=== PATIENT | male | born 1965 | race Caucasian/White ===

== ENCOUNTER 2016-12-03 21:19 | Emergency (ER) | payer OTHER ==
[~2016-12-03] VITALS: Ht 170.2 cm; Wt 62.0 kg
[~2016-12-03 21:19] MED LIST: BACT800T5 PO; CHEMO; CYAN100017 PO; LACT PO; LORTA5 PO; SYNT88TA PO; TRAM50TA PO
[2016-12-03 21:22] VITALS: BP 132/85; PULSE 101; RESP 16; TEMP 98.8; O2SAT 99
[2016-12-03] MEDS ORDERED: OXYC1TAB63 PO (21:50)
[2016-12-03] MEDS ORDERED: LEVO.125 PO (21:50)
--- NOTE | 2016-12-03 21:51 | PD ---
HPI . Constipation Chief Complaint: GI Complaint Time Seen by Provider: 21:40 Travel History International Travel<30 days: No Contact w/Intl Traveler<30days: No Traveled to known affect area: No History of Present Illness HPI Patient presents with a chief complaint of abdominal pain and constipation. He underwent a GoLYTELY prep for colonoscopy about a week ago. He has not been able to have a bowel movement since. He has been treating himself with Metamucil and a stool softener without success. No known exacerbating factor. His abdominal pain is constant and crampy and is rated 6/10. PFSH Past Medical History Cancer: Yes (VOCAL CORDS) Cardiovascular Problems: Yes Chemotherapy: Yes COPD: Yes Diabetes: No Diminished Hearing: No Endocrine: Yes Genitourinary: No Hepatitis: No Hiatal Hernia: No Immune Disorder: No Musculoskeletal: Yes Neurologic: No Psychiatric: No Reproductive: No Respiratory: Yes Immunizations Current: Yes Radiation Therapy: Yes Sickle Cell Disease: No Thyroid Disease: Yes (HYPOTHYROIDISM) Tetanus Vaccination: > 5 Years Influenza Vaccination: No Past Surgical History AICD: No Endocrine Surgery: Yes (thyroidectomy) Joint Replacement: No Pacemaker: No Other Surgery: Yes (TRACH AND PEG TUBE) Social History Alcohol Use: Yes (occ) Tobacco Use: No Substance Use: No Allergies-Medications (Allergen,Severity, Reaction): Coded Allergies: *MDRO Multi-Drug Resistant Organism (Verified Adverse Reaction, Unknown, ) MRSA (sputum) - 02/28/16 Reported Meds & Prescriptions Reported Meds & Active Scripts Active Lactinex (Lactobacillus Acidophilus) 1 Tab Tab 1 Tab PO BID 31 Days Bactrim DS (Sulfamethoxazole-Trimethoprim DS) 1 Tab Tab 1 Tab PO BID 7 Days [place] 5-325 mg (Hydrocodone-Acetaminophen 5-325 mg) 1 Tab 1 Tab PO Q4H PRN B-12 (Cyanocobalamin) 1 000 Cap 1,000 Mcg PO DAILY 1000 mcg (1 mg) every day for one week, followed by 1 mg every week for four weeks and then, if the underlying disorder persists (eg, PA, surgical removal of the terminal ileum), 1 mg every month for the remainder of the patient's life. Reported Oxycodone-Acetaminophen 5-325 mg Tab 1 Tab PO Q6H PRN Synthroid (Levothyroxine Sodium) 125 Mcg Tab 125 Mcg PO DAILY Tramadol Hcl (Tramadol HCl) 50 Mg Tab 50 Mg PO Q4H PRN [Chemo ] Synthroid 88 mcg (Levothyroxine Sodium) 88 Mcg Tab 88 Mcg PO DAILY Review of Systems Except as stated in HPI: all other systems reviewed are Neg General / Constitutional: No: Fever, Chills Gastrointestinal: Positive: Abdominal Pain, Constipation Physical Exam Narrative GENERAL: Awake and alert and in no acute distress. He speaks with a voice box. SKIN: Warm and dry. HEAD: Atraumatic. Normocephalic. EYES: Pupils equal and round. NECK: Trachea midline. Tracheostomy. CARDIOVASCULAR: Regular rate and rhythm. RESPIRATORY: No accessory muscle use. GI: His abdomen is soft. Rectal exam shows soft stool. MUSCULOSKELETAL: No obvious deformities. No edema. NEUROLOGICAL: Awake and alert. No obvious cranial nerve deficits. Motor grossly within normal limits. Normal speech. PSYCHIATRIC: Appropriate mood and affect; insight and judgment normal. Data Data Last Documented VS Vital Signs Date Time Temp Pulse Resp B/P Pulse Ox O2 Delivery O2 Flow Rate FiO2 12/03/16 21:22 98.8 101 16 132/85 99 Orders Fleets Enema (Adult) (Fleets Enema (Adul (12/03/16 22:00) MDM Medical Decision Making Medical Screen Exam Complete: Yes Emergency Medical Condition: Yes Differential Diagnosis Differential diagnosis of abdominal pain includes but is not limited to gastritis, pancreatitis, hepatitis, gastroenteritis, gallbladder disease, constipation, urinary retention, UTI, peptic ulcer disease, diverticulitis or appendicitis. Narrative Course This patient presents with abdominal pain and constipation. He is not impacted on exam. He will be treated with a fleets enema. The patient had good results with a fleets enema. He states that his pain is improved but not yet completely resolved. The enema will be followed up with a bottle of magnesium citrate. He will then be discharged home. Diagnosis Primary Impression: Constipation Qualified Code: K59.00 - Constipation, unspecified constipation type Patient Instructions: Constipation (DC), General Instructions Disposition: 01 DISCHARGE HOME Condition: Stable Melinda Wiley MD Dec 03, 2016 21:51
[2016-12-03] MEDS ORDERED: SOD PHOSPHATE/SOD BIPHOSPHATE (ADULT) ENEMA 133ML RECTAL ONE (22:00)
[2016-12-03] MEDS ORDERED: MAGNESIUM CITRATE SOLN 300 ML BTL G-TUBE ONE (23:15)
[2016-12-03] MEDS ORDERED: MAGNESIUM CITRATE SOLN 300 ML BTL PO ONE (23:15)
== END 2016-12-03 23:42 | disposition home or self-care (01) ==
LOC: NEPD 21:19
DX: K59.00 Constipation, unspecified (principal); J44.9 Chronic obstructive pulmonary disease, unspecified; E03.9 Hypothyroidism, unspecified; Z93.0 Tracheostomy status; Z85.21 Personal history of malignant neoplasm of larynx
CPT/HCPCS: 99284

== ENCOUNTER 2017-02-23 05:38 | Emergency (ER) | payer OTHER ==
[~2017-02-23] VITALS: Ht 175.3 cm; Wt 66.0 kg
[~2017-02-23 05:38] MED LIST changes: +LEVO.125 PO; +OXYC1TAB63 PO
[2017-02-23 05:42] VITALS: BP 128/91; PULSE 138; RESP 18; TEMP 99; O2SAT 99
--- NOTE | 2017-02-23 06:21 | PD ---
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 Patient is otherwise been feeling well and voices no other concerns or complaints. PFSH Past Medical History Narrative Medical Laryngeal cancer tracheostomy PEG tube COPD; nursing notes reviewed Cancer: Yes (VOCAL CORDS) Cardiovascular Problems: Yes Chemotherapy: Yes COPD: Yes Diabetes: No Diminished Hearing: No Endocrine: Yes Genitourinary: No Hepatitis: No Hiatal Hernia: No Immune Disorder: No Musculoskeletal: Yes Neurologic: No Psychiatric: No Reproductive: No Respiratory: Yes Immunizations Current: Yes Radiation Therapy: Yes Sickle Cell Disease: No Thyroid Disease: Yes (HYPOTHYROIDISM) Past Surgical History AICD: No Endocrine Surgery: Yes (thyroidectomy) Joint Replacement: No Pacemaker: No Other Surgery: Yes (TRACH AND PEG TUBE) Social History Alcohol Use: Yes (occ) Tobacco Use: No Substance Use: No Allergies-Medications (Allergen,Severity, Reaction): Coded Allergies: *MDRO Multi-Drug Resistant Organism (Verified Adverse Reaction, Unknown, ) MRSA (sputum) - 02/28/16 Reported Meds & Prescriptions Reported Meds & Active Scripts Active Lactinex (Lactobacillus Acidophilus) 1 Tab Tab 1 Tab PO BID 31 Days Bactrim DS (Sulfamethoxazole-Trimethoprim DS) 1 Tab Tab 1 Tab PO BID 7 Days [place] 5-325 mg (Hydrocodone-Acetaminophen 5-325 mg) 1 Tab 1 Tab PO Q4H PRN B-12 (Cyanocobalamin) 1 000 Cap 1,000 Mcg PO DAILY 1000 mcg (1 mg) every day for one week, followed by 1 mg every week for four weeks and then, if the underlying disorder persists (eg, PA, surgical removal of the terminal ileum), 1 mg every month for the remainder of the patient's life. Reported Oxycodone-Acetaminophen 5-325 mg Tab 1 Tab PO Q6H PRN Synthroid (Levothyroxine Sodium) 125 Mcg Tab 125 Mcg PO DAILY Tramadol Hcl (Tramadol HCl) 50 Mg Tab 50 Mg PO Q4H PRN [Chemo ] Synthroid 88 mcg (Levothyroxine Sodium) 88 Mcg Tab 88 Mcg PO DAILY Review of Systems Except as stated in HPI: all other systems reviewed are Neg General / Constitutional: No: Fever Cardiovascular: No: Chest Pain or Discomfort Respiratory: No: Shortness of Breath Gastrointestinal: No: Abdominal Pain Musculoskeletal: No: Pain Neurologic: No: Weakness Hematologic/Lymphatic: No: Easy Bruising Physical Exam Narrative GENERAL: Well-developed thin male in no acute distress no respiratory distress SKIN: Warm and dry. HEAD: Normocephalic. EYES: No scleral icterus. No injection or drainage. NECK: Supple, trachea midline. No JVD or lymphadenopathy. CARDIOVASCULAR: Regular rate and rhythm without murmurs, gallops, or rubs. RESPIRATORY: Breath sounds equal bilaterally. No accessory muscle use. GASTROINTESTINAL: Abdomen soft, non-tender, stoma exposed without PEG tube in place, nondistended. Data Data Last Documented VS Vital Signs Date Time Temp Pulse Resp B/P (MAP) Pulse Ox O2 Delivery O2 Flow Rate FiO2 02/23/17 05:42 99.0 138 18 128/91 (103) 99 Room Air Orders Orders Abdomen, Kub Only (02/23/17 ) [facility] Medical Decision Making Medical Screen Exam Complete: Yes Emergency Medical Condition: Yes Medical Record Reviewed: Yes Interpretation(s) KUB: FINDINGS: Frontal view of the upper abdomen lower chest was performed after instillation of Gastrografin through the PEG tube. Contrast is seen in the stomach and in loops of small bowel. No dilated loops of small bowel. Visualized lower lungs are clear. CONCLUSION: Intraluminal water-soluble contrast in stomach and small bowel. Virgil Newberry MD on February 23, 2017 at 6:46 Board Certified Radiologist. This report was verified electronically. Differential Diagnosis Device malfunction, PEG tube dislodgment Narrative Course After identifying patient with 18 [place] PEG tube area with cleansed with Betadine and gently inserted into the stoma of his prior PEG tube placement. Patient tolerated procedure well. KUB with as her graft been ordered to confirm placement Diagnosis Primary Impression: PEG (percutaneous endoscopic gastrostomy) adjustment/replacement/removal Referrals: Primary Care Physician call for appointment Patient Instructions: General Instructions Additional Instructions: Return to the emergency department for any concerns or change in condition Disposition: 01 DISCHARGE HOME Condition: Stable Leeann Dumont MD Feb 23, 2017 06:21
--- NOTE | 2017-02-23 06:52 | RADRPT ---
EXAM DATE/TIME: 02/23/2017 06:28 [facility] COMPARISON: No previous studies available for comparison. INDICATIONS : Perforation MEDICAL HISTORY : Chronic obstructive pulmonary disease. laryngeal cancer SURGICAL HISTORY : Rib removal. ENCOUNTER: Initial ACUITY: 1 day PAIN SCORE: 0/10 LOCATION: abdomen FINDINGS: Frontal view of the upper abdomen lower chest was performed after instillation of Gastrografin throug h the PEG tube. Contrast is seen in the stomach and in loops of small bowel. No dilated loops of sm all bowel. Visualized lower lungs are clear. CONCLUSION: Intraluminal water-soluble contrast in stomach and small bowel. Virgil Newberry MD on February 23, 2017 at 6:46 Board Certified Radiologist. This report was verified electronically.
== END 2017-02-23 07:23 | disposition home or self-care (01) ==
LOC: NEPC 05:38
DX: Z46.59 Encounter for fitting and adjustment of other gastrointestinal appliance and device (principal); K94.23 Gastrostomy malfunction; J44.9 Chronic obstructive pulmonary disease, unspecified; Z85.21 Personal history of malignant neoplasm of larynx
CPT/HCPCS: 74000; 99283

== ENCOUNTER 2017-02-27 10:59 | Observation (INO) | payer OTHER ==
[~2017-02-27] VITALS: Ht 180.3 cm; Wt 64.0 kg
[2017-02-27] MEDS ORDERED: IODIXANOL 320 MG/ML 10 ML VIAL (for Rad CT) IV ONE (11:00)
[2017-02-27] MEDS ORDERED: IOHEXOL 350 MG/ML 10 ML VIAL (for RAD DIAG) IVCONTRAST ONE (11:00)
[2017-02-27 11:06] VITALS: BP 110/88; PULSE 128; RESP 23; TEMP 98.9; O2SAT 100
[2017-02-27 11:11] VITALS: BP 110/88; PULSE 137; RESP 24; O2SAT 100
[2017-02-27] MEDS ORDERED: SODIUM CHLOR 0.9% 1000 ML INJ 1,000 ML IV SCH (11:14)
--- NOTE | 2017-02-27 11:14 | PD ---
HPI Chief Complaint: General Weakness Time Seen by Provider: 11:13 Travel History International Travel<30 days: No Contact w/Intl Traveler<30days: No Traveled to known affect area: No History of Present Illness HPI 51-year-old male with history of laryngeal cancer with laryngectomy in June 2016. Patient's here with weakness and question syncope with nausea and vomiting. Patient was brought in by EMS. Patient states he has done with his oncology and radiation patient recently had a G-tube placed last Saturday here by interventional radiology. Patient states when he puts anything in his feeding tube. Has vomiting. Patient reports vomiting black emesis. He denies decreased urination, but appears very dry. Patient denies constipation or diarrhea. He denies changes in his stool. Patient states abdominal pain of a 5 out of 10. His pain is generalized. He is worried that his G-tube insertion site may be infected. He is noted to be tachycardic. He has MRSA but no known drug allergies. PFSH Past Medical History Cancer: Yes (VOCAL CORDS) Cardiovascular Problems: Yes Chemotherapy: Yes COPD: Yes Diabetes: No Diminished Hearing: No Endocrine: Yes Genitourinary: No Hepatitis: No Hiatal Hernia: No Immune Disorder: No Musculoskeletal: Yes Neurologic: No Psychiatric: No Reproductive: No Respiratory: Yes Immunizations Current: Yes Radiation Therapy: Yes Sickle Cell Disease: No Thyroid Disease: Yes (HYPOTHYROIDISM) Past Surgical History AICD: No Endocrine Surgery: Yes (thyroidectomy) Joint Replacement: No Pacemaker: No Other Surgery: Yes (TRACH AND PEG TUBE) Social History Alcohol Use: Yes (occ) Tobacco Use: No Substance Use: No Allergies-Medications (Allergen,Severity, Reaction): Coded Allergies: *MDRO Multi-Drug Resistant Organism (Verified Adverse Reaction, Unknown, ) MRSA (sputum) - 02/28/16 Reported Meds & Prescriptions Reported Meds & Active Scripts Active Reported Oxycodone-Acetaminophen 5-325 mg Tab 1 Tab PO Q6H PRN Synthroid (Levothyroxine Sodium) 125 Mcg Tab 125 Mcg PO DAILY [Chemo ] Review of Systems ROS Limitations: Speech Impaired Except as stated in HPI: all other systems reviewed are Neg General / Constitutional: No: Fever Eyes: No: Visual changes HENT: No: Headaches Cardiovascular: No: Chest Pain or Discomfort Respiratory: No: Shortness of Breath Gastrointestinal: Positive: Nausea, Vomiting, Abdominal Pain, Indigestion, Dysphagia, Loss of Appetite, No: Diarrhea, Hematemesis, Hematochezia, Constipation, Changes in Bowel Habits Genitourinary: No: Dysuria, Decreased Urinary Output Musculoskeletal: No: Pain Skin: No Rash Neurologic: No: Weakness Psychiatric: No: Depression Endocrine: No: Polydipsia Hematologic/Lymphatic: No: Easy Bruising Physical Exam Narrative GENERAL: Patient appears cachectic, and in mild distress. SKIN: Warm and dry. Poor turgor with tenting. Moderate pallor. HEAD: Atraumatic. Normocephalic. EYES: Pupils equal and round. No scleral icterus. No injection or drainage. ENT: No nasal bleeding or discharge. Mucous membranes pink but very dry. Laryngotomy site appears well-healed, and without infection. NECK: Trachea midline. Supple. CARDIOVASCULAR: Tachycardic rate and normal rhythm. RESPIRATORY: No accessory muscle use. Clear to auscultation. Breath sounds equal bilaterally. GASTROINTESTINAL: Abdomen soft, diffuse tenderness, nondistended. G-tube site appears to have localized dark exudate surrounding the tube. There is no obvious bleeding or signs of cellulitis. Hepatic and splenic margins not palpable. Bowel sounds are present but quiet in all quadrants MUSCULOSKELETAL: Extremities without clubbing, cyanosis, or edema. No obvious deformities. NEUROLOGICAL: Awake and alert. No obvious cranial nerve deficits. Motor grossly within normal limits. Five out of 5 muscle strength in the arms and legs. Patient requires voice box for speech. PSYCHIATRIC: Appropriate mood and affect; insight and judgment normal. Data Data Last Documented VS Vital Signs Date Time Temp Pulse Resp B/P (MAP) Pulse Ox O2 Delivery O2 Flow Rate FiO2 02/27/17 12:12 117 16 113/83 (93) 98 Room Air 02/27/17 11:06 98.9 Orders Orders Complete Blood Count With Diff (02/27/17 11:14) Comprehensive Metabolic Panel (02/27/17 11:14) Lipase (02/27/17 11:14) Lactic Acid (02/27/17 11:14) Prothrombin Time / Inr (Pt) (02/27/17 11:14) Act Partial Throm Time (Ptt) (02/27/17 11:14) Urinalysis - C+S If Indicated (02/27/17 11:14) Ct Abd/Pel W Iv Contrast(Rout) (02/27/17 11:14) Iv Access Insert/Monitor (02/27/17 11:14) Ecg Monitoring (02/27/17 11:14) Oximetry (02/27/17 11:14) NPO (02/27/17 11:14) Morphine Inj (Morphine Inj) (02/27/17 11:15) Ondansetron Inj (Zofran Inj) (02/27/17 11:15) Pantoprazole Inj (Protonix Inj) (02/27/17 11:15) Sodium Chlor 0.9% 1000 Ml Inj (Ns 1000 M (02/27/17 11:14) Sodium Chloride 0.9% Flush (Ns Flush) (02/27/17 11:15) Electrocardiogram (02/27/17 11:14) Chest, Single Ap (02/27/17 11:14) Invasive Rad Dept Consult (02/27/17 ) Sodium Chlor 0.9% 1000 Ml Inj (Ns 1000 M (02/27/17 12:15) Potassium Chlor 20 Meq Premix (Kcl 20 Me (02/27/17 13:00) Lactic Acid Sepsis Protocol (02/27/17 13:12) Iodixanol 320 Inj (Rad Ct) (Visipaque 32 (02/27/17 11:00) Admit Order (Ed Use Only) (02/27/17 13:28) Labs Laboratory Tests Test 02/27/17 11:30 White Blood Count 16.6 TH/MM3 Red Blood Count 3.37 MIL/MM3 Hemoglobin 13.0 GM/DL Hematocrit 37.5 % Mean Corpuscular Volume 111.5 FL Mean Corpuscular Hemoglobin 38.8 PG Mean Corpuscular Hemoglobin Concent 34.7 % Red Cell Distribution Width 12.9 % Platelet Count 278 TH/MM3 Mean Platelet Volume 7.5 FL Neutrophils (%) (Auto) 86.2 % Lymphocytes (%) (Auto) 4.0 % Monocytes (%) (Auto) 9.6 % Eosinophils (%) (Auto) 0.0 % Basophils (%) (Auto) 0.2 % Neutrophils # (Auto) 14.3 TH/MM3 Lymphocytes # (Auto) 0.7 TH/MM3 Monocytes # (Auto) 1.6 TH/MM3 Eosinophils # (Auto) 0.0 TH/MM3 Basophils # (Auto) 0.0 TH/MM3 CBC Comment DIFF FINAL Differential Comment Prothrombin Time 11.4 SEC Prothromb Time International Ratio 1.0 RATIO Activated Partial Thromboplast Time 23.9 SEC Blood Urea Nitrogen 51 MG/DL Creatinine 1.87 MG/DL Random Glucose 230 MG/DL Total Protein 7.0 GM/DL Albumin 3.2 GM/DL Calcium Level 8.5 MG/DL Alkaline Phosphatase 83 U/L Aspartate Amino Transf (AST/SGOT) 25 U/L Alanine Aminotransferase (ALT/SGPT) 61 U/L Total Bilirubin 1.2 MG/DL Sodium Level 133 MEQ/L Potassium Level 2.7 MEQ/L Chloride Level 88 MEQ/L Carbon Dioxide Level 28.6 MEQ/L Anion Gap 16 MEQ/L Estimat Glomerular Filtration Rate 38 ML/MIN Lactic Acid Level 3.0 mmol/L Lipase 326 U/L MDM Medical Decision Making Medical Screen Exam Complete: Yes Emergency Medical Condition: Yes Differential Diagnosis G-tube malfunction. Nausea and vomiting. Abdominal pain. Obstruction. Dehydration. Electrolyte imbalance. Renal failure. History of cancer. Sepsis. Narrative Course Labs ordered including CBC, CMP, lactic acid, lipase, PT PTT and INR, and urinalysis. EKG is ordered sinus tachycardia with a rate of [address] changes. This was reviewed with Dr. Wiley. IV access is obtained patient is given 1000 mL of normal saline bolus as well as 4 mg Zofran IV as well as 40 mg pantoprazole IV, as well as 4 mg morphine IV. Chest x-ray is ordered, as well as CT of the abdomen. Orders placed for interventional radiology to assess the patency of the G-tube. Patient is given an additional 1000 mL NORMAL saline bolus. CBC shows leukocytosis of 16.6. Coagulation studies are normal. CMP shows sodium of 133, potassium 2.7, chloride of 88, anion gap of 16. BUN of 51, creatinine of 1.87. Glucose is 2:30, lactic acid is 3.0. IV KCl is ordered 20 mEq 2. 1300 hrs. Call was placed to the hospitalist for admission. Abdominal CT is still pending. As well as interventional radiology assessing. Patient is discussed with Dr. Arce and patient will be admitted to observation pending CT results. Diagnosis Primary Impression: Elevated serum creatinine Additional Impressions: Elevated lactic acid level Leukocytosis Qualified Codes: D72.829 - Elevated white blood cell count, unspecified Dehydration Hypokalemia Admitting Information Admitting Physician Requests: Admit Condition: Stable Francis Hurt Feb 27, 2017 11:14
[2017-02-27] MEDS ORDERED: ONDANSETRON HCL 4 MG/2 ML VIAL IVP ONE (11:15)
[2017-02-27] MEDS ORDERED: MORPHINE SULFATE 4 MG/ML INJ IV PUSH ONE (11:15)
[2017-02-27] MEDS ORDERED: SODIUM CHLORIDE 0.9% FLUSH 10 ML FLUSH IV FLUSH PRN ×2 (11:15→13:45)
[2017-02-27] MEDS ORDERED: PANTOPRAZOLE SODIUM 40 MG VIAL IVP ONE (11:15)
--- NOTE | 2017-02-27 11:56 | PD ---
Physical Exam Date Seen by Provider: Feb 27, 2017 Data Data Last Documented VS Vital Signs Date Time Temp Pulse Resp B/P (MAP) Pulse Ox O2 Delivery O2 Flow Rate FiO2 02/27/17 11:11 137 24 110/88 (95) 100 Room Air 02/27/17 11:06 98.9 Orders Orders Complete Blood Count With Diff (02/27/17 11:14) Comprehensive Metabolic Panel (02/27/17 11:14) Lipase (02/27/17 11:14) Lactic Acid (02/27/17 11:14) Prothrombin Time / Inr (Pt) (02/27/17 11:14) Act Partial Throm Time (Ptt) (02/27/17 11:14) Urinalysis - C+S If Indicated (02/27/17 11:14) Ct Abd/Pel W Iv Contrast(Rout) (02/27/17 11:14) Iv Access Insert/Monitor (02/27/17 11:14) Ecg Monitoring (02/27/17 11:14) Oximetry (02/27/17 11:14) NPO (02/27/17 11:14) Morphine Inj (Morphine Inj) (02/27/17 11:15) Ondansetron Inj (Zofran Inj) (02/27/17 11:15) Pantoprazole Inj (Protonix Inj) (02/27/17 11:15) Sodium Chlor 0.9% 1000 Ml Inj (Ns 1000 M (02/27/17 11:14) Sodium Chloride 0.9% Flush (Ns Flush) (02/27/17 11:15) Electrocardiogram (02/27/17 11:14) Chest, Single Ap (02/27/17 11:14) Invasive Rad Dept Consult (02/27/17 ) MDM Supervised Visit with RONALDO: Yes Narrative Course I, Dr. Wiley, have reviewed the advance practice practitioner's documentation and am in agreement, met with the patient face to face, made the diagnosis, and the medical decision making was done by me. *My assessment and Findings: Chronically ill-appearing man who is in no acute distress. He has a tracheostomy and speaks using a voice box. He has a PEG tube. Please see and the Licha's note for final diagnosis and disposition. Melinda Wiley MD Feb 27, 2017 11:56
[2017-02-27 12:09] LABS: AUTOMATED NEUTROPHIL # 14.3 TH/MM3 (1.8-7.7); BASOPHIL % 0.2 % (0.0-2.0); HEMATOCRIT 37.5 % (39.0-51.0); HEMO FLAGS DIFF FINAL; LYMPHOCYTE # 0.7 TH/MM3 (1.0-4.8); MEAN CELL VOLUME 111.5 FL (80.0-100.0); MEAN CORPUSCULAR HEMOGLOBIN 38.8 PG (27.0-34.0); MEAN CORPUSCULAR HGB CONC 34.7 % (32.0-36.0); MONO % 9.6 % (0.0-8.0); NEUT % 86.2 % (16.0-70.0); PLATELET COUNT 278 TH/MM3 (150-450); RED BLOOD COUNT 3.37 MIL/MM3 (4.50-5.90); RED CELL DISTRIBUTION WIDTH 12.9 % (11.6-17.2); WHITE BLOOD COUNT 16.6 TH/MM3 (4.0-11.0)
[2017-02-27 12:11] LABS: APTT (PATIENT) 23.9 SEC (24.3-30.1); PROTHROMBIN TIME - PATIENT 11.4 SEC (9.8-11.6)
[2017-02-27 12:12] VITALS: BP 113/83; PULSE 117; RESP 16; O2SAT 98
[2017-02-27] MEDS ORDERED: SODIUM CHLOR 0.9% 1000 ML INJ 1,000 ML IV ONE (12:15)
[2017-02-27 12:38] LABS: ALKALINE PHOSPHATASE 83 U/L (45-117); ALT (GPT) 61 U/L (12-78); ANION GAP 16 MEQ/L (5-15); AST (GOT) 25 U/L (15-37); BICARBONATE 28.6 MEQ/L (21.0-32.0); CHLORIDE 88 MEQ/L (98-107); GLOMERULAR FILTRATION RATE 38 ML/MIN (>89); POTASSIUM 2.7 MEQ/L (3.5-5.1); SODIUM (NA) 133 MEQ/L (136-145); TOTAL BILIRUBIN ADULT 1.2 MG/DL (0.2-1.0)
--- NOTE | 2017-02-27 12:42 | RADRPT ---
EXAM DATE/TIME: 02/27/2017 11:45 [facility] COMPARISON: ABDOMEN KUB ONLY, February 23, 2017, 6:28. CHEST SINGLE AP, February 28, 2016, 11:10. INDICATIONS : Syncope, short of breath, upper abdomen pains. MEDICAL HISTORY : Venous insufficiency. SURGICAL HISTORY : Trach, Infusaport ENCOUNTER: Initial ACUITY: 1 day PAIN SCORE: 0/10 LOCATION: Bilateral chest FINDINGS: A single view of the chest demonstrates the lungs to be symmetrically aerated without evidence of mas s, infiltrate or effusion. Stable right IJ port. The cardiomediastinal contours are unremarkable. O sseous structures are intact. CONCLUSION: 1. No acute abnormality or significant interval change. Kerwin Hook MD on February 27, 2017 at 12:39 Board Certified Radiologist. This report was verified electronically.
[2017-02-27 12:43] LABS: BLOOD UREA NITROGEN 51 MG/DL (7-18)
[2017-02-27] MEDS ORDERED: ACETAMINOPHEN 325 MG TAB PO PRN (13:45)
[2017-02-27] MEDS ORDERED: NALOXONE HCL 0.4 MG/ML AMP IV PUSH PRN (13:45)
--- NOTE | 2017-02-27 14:01 | RADRPT ---
EXAM DATE/TIME: 02/27/2017 13:06 [facility] COMPARISON: CT SOFT TISSUE NECK W CONTRAST, May 14, 2016, 14:55. INDICATIONS : Weakness, vomiting, left sided abdomen pain IV CONTRAST: 47 cc Visipaque (iodixanol) IV ORAL CONTRAST: No oral contrast ingested. RADIATION DOSE: 5.87 CTDIvol (mGy) MEDICAL HISTORY : Chronic obstructive pulmonary disease. Cardiovascular disease Vocal cord cancer SURGICAL HISTORY : None. ENCOUNTER: Initial ACUITY: 1 day PAIN SCALE: 6/10 LOCATION: Left abdomen TECHNIQUE: Volumetric scanning of the abdomen and pelvis was performed. Using automated exposure control and ad justment of the mA and/or kV according to patient size, radiation dose was kept as low as reasonably achievable to obtain optimal diagnostic quality images. DICOM format image data is available electro nically for review and comparison. FINDINGS: The examination demonstrates him fluid the distal esophagus. The distal esophagus appears mildly dila jarad. The lung bases are clear. The appearance of the liver, spleen, pancreas, adrenal glands and kidneys is within normal limits. Note is made of gastrostomy tube. The gastrostomy tube appears in satisfactory position. No free intraperitoneal air is seen. No free intraperitoneal fluid is identified. The visualized loops of small and large bowel within the upper abdomen are unremarkable in appearance . There is no free fluid within the pelvis. No iliac or inguinal adenopathy is seen. No inflammatory ch anges are identified. The visualized bony structures demonstrate degenerative changes but are otherwise intact. CONCLUSION: 1. The gastrostomy tube is in good position. 2. No definite abnormality to explain the patient's left-sided abdominal pain is identified. 3. Degenerative changes throughout the spine. Zelalem Gutierrez MD on February 27, 2017 at 13:56 Board Certified Radiologist. This report was verified electronically.
[2017-02-27] MEDS: POTASSIUM CHLOR 20 MEQ PREMIX 100 ML IV SCH ×2 (14:09→16:01)
--- NOTE | 2017-02-27 14:30 | EKG ---
Date Performed: 02/27/2017 Time Performed: 11:23:36 PTAGE: 51 years EKG: SINUS TACHYCARDIA NONSPECIFIC ST & T-WAVE ABNORMALITY ABNORMAL RHYTHM ECG PREVIOUS TRACING : 02/28/2016 10.48 Compared to prior tracing no significant change DOCTOR: Consuelo Canchola Interpretating Date/Time 02/27/2017 14:28:40
[2017-02-27 14:43] VITALS: BP 101/73; PULSE 119; RESP 16; O2SAT 97
--- NOTE | 2017-02-27 15:21 | HHI.HP ---
[facility] Adal Turner, Admission Diagnosis HypoKalemia/Elevated Creatinine/Leukocytosis/Vomitting Diagnoses: (1) Acute renal failure (2) Feeding tube dysfunction (3) Abdominal pain (4) Dehydration (5) Leukocytosis (6) Hypokalemia Chief Complaint: Left-sided abdominal pain Travel History International Travel<30 Days: No Contact w/Intl Traveler <30 Da: No Traveled to Known Affected Are: No History of Present Illness 51-year-old man with a history of laryngeal cancer who recently underwent G- tube replacement on 02/24/17 by interventional radiology presented to the ED for evaluation of syncopal episode along with weakness, nausea and vomiting associated with left-sided abdominal pain 3 days duration. Patient is currently on tube feed however reports multiple episodes of black emesis over the past 48 hours. He also complained abdominal pain mostly to his left- sided rated 5/10 intensity. He denies any febrile episode however abnormal lab includes WBC 16, BUN/creatinine 51/1.87, potassium 2.7 and blood glucose 2:30. Vitals with temperature 98.9, heart rate 128, respiratory rate 23, BP 110/88 with oxygen saturation on room air 100% Review of Systems Except as stated in HPI: all other systems reviewed are Neg Past Family Social History Past Medical History squamous cell carcinoma of glottic larynx, stage III thyroid enlargement, hypothyroid Past Surgical History Rib resection PEG tube placement in 2016 Direct laryngoscopy in 2016 Tracheostomy in 2016 Reported Medications Synthroid 88 mcg (Levothyroxine Sodium) 88 Mcg Tab 88 Mcg PO DAILY Allergies: Coded Allergies: *MDRO Multi-Drug Resistant Organism (Verified Adverse Reaction, Unknown, ) MRSA (sputum) - 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 Family History His mother and her 4 siblings all had Maryuri's or hypothyroidism His father of emphysema secondary to smoking and agent orange exposure Social History Alcohol Use: Yes (occ) Tobacco Use: No Substance Use: No Physical Exam Vital Signs Vital Signs Date Time Temp Pulse Resp B/P (MAP) Pulse Ox O2 Delivery O2 Flow Rate FiO2 02/27/17 15:09 02/27/17 14:43 119 16 101/73 (82) 97 Room Air 02/27/17 12:12 117 16 113/83 (93) 98 Room Air 02/27/17 11:11 137 24 110/88 (95) 100 Room Air 02/27/17 11:06 98.9 128 23 110/88 (95) 100 Physical Exam GENERAL: This is a well-nourished, well-developed patient, in no apparent distress. SKIN: No rashes, ecchymoses or lesions. Cool and dry. HEAD: Atraumatic. Normocephalic. No temporal or scalp tenderness. EYES: Pupils equal round and reactive. Extraocular motions intact. No scleral icterus. No injection or drainage. ENT: Nose without bleeding, purulent drainage or septal hematoma. Throat without erythema, tonsillar hypertrophy or exudate. Uvula midline. Airway patent. NECK: Trachea midline. No JVD or lymphadenopathy. Supple, nontender, no meningeal signs. CARDIOVASCULAR: Regular rate and rhythm without murmurs, gallops, or rubs. RESPIRATORY: Clear to auscultation. Breath sounds equal bilaterally. No wheezes , rales, or rhonchi. GASTROINTESTINAL: Abdomen soft, non-tender, nondistended. No hepato-splenomegaly , or palpable masses. No guarding. MUSCULOSKELETAL: Extremities without clubbing, cyanosis, or edema. No joint tenderness, effusion, or edema noted. No calf tenderness. Negative Homans sign bilaterally. NEUROLOGICAL: Awake and alert. Cranial nerves II through XII intact. Motor and sensory grossly within normal limits. Five out of 5 muscle strength in all muscle groups. Normal speech. Laboratory Laboratory Tests Test 02/27/17 11:30 02/27/17 13:35 White Blood Count 16.6 Red Blood Count 3.37 Hemoglobin 13.0 Hematocrit 37.5 Mean Corpuscular Volume 111.5 Mean Corpuscular Hemoglobin 38.8 Mean Corpuscular Hemoglobin Concent 34.7 Red Cell Distribution Width 12.9 Platelet Count 278 Mean Platelet Volume 7.5 Neutrophils (%) (Auto) 86.2 Lymphocytes (%) (Auto) 4.0 Monocytes (%) (Auto) 9.6 Eosinophils (%) (Auto) 0.0 Basophils (%) (Auto) 0.2 Neutrophils # (Auto) 14.3 Lymphocytes # (Auto) 0.7 Monocytes # (Auto) 1.6 Eosinophils # (Auto) 0.0 Basophils # (Auto) 0.0 CBC Comment DIFF FINAL Differential Comment Prothrombin Time 11.4 Prothromb Time International Ratio 1.0 Activated Partial Thromboplast Time 23.9 Blood Urea Nitrogen 51 Creatinine 1.87 Random Glucose 230 Total Protein 7.0 Albumin 3.2 Calcium Level 8.5 Alkaline Phosphatase 83 Aspartate Amino Transf (AST/SGOT) 25 Alanine Aminotransferase (ALT/SGPT) 61 Total Bilirubin 1.2 Sodium Level 133 Potassium Level 2.7 Chloride Level 88 Carbon Dioxide Level 28.6 Anion Gap 16 Estimat Glomerular Filtration Rate 38 Lactic Acid Level 3.0 1.6 Lipase 326 Result Diagram: 02/27/17 1130 02/27/17 1130 Imaging Last Impressions Chest X-Ray 02/27/17 1114 Signed Impressions: Service Date/Time: Monday, February 27, 2017 11:45 - CONCLUSION: 1. No acute abnormality or significant interval change. Kerwin Hook MD Abdomen/Pelvis CT 02/27/17 1114 Signed Impressions: Service Date/Time: Monday, February 27, 2017 13:06 - CONCLUSION: 1. The gastrostomy tube is in good position. 2. No definite abnormality to explain the patient's left-sided abdominal pain is identified. 3. Degenerative changes throughout the spine. MD Paul Esparzai VTE Risk Assessment Caprini VTE Risk Assessment: No/Low Risk (score <= 1) Caprini Risk Assessment Model Point Value = 1 Point Value = 2 Point Value = 3 Point Value = 5 Age 41-60 Minor surgery BMI > 25 kg/m2 Swollen legs Varicose veins or History of unexplained or recurrent spontaneous Oral contraceptives or hormone replacement Sepsis (< 1 month) Serious lung disease, including pneumonia (< 1 month) Abnormal pulmonary function Acute myocardial infarction Congestive heart failure (< 1 month) History of inflammatory bowel disease Medical patient at bed rest Age 61-74 Arthroscopic surgery Major open surgery (> 45 min) Laparoscopic surgery (> 45 min) Malignancy Confined to bed (> 72 hours) Immobilizing plaster cast Central venous access Age >= 75 History of VTE Family history of VTE Factor V Leiden Prothrombin [id number] Lupus anticoagulant Anticardiolipin antibodies Elevated serum homocysteine Heparin-induced thrombocytopenia Other congenital or acquired thrombophilia Stroke (< 1 month) Elective arthroplasty Hip, pelvis, or leg fracture Acute spinal cord injury (< 1 month) Prophylaxis Regimen Total Risk Factor Score Risk Level Prophylaxis Regimen 0-1 Low Early ambulation 2 Moderate Order ONE of the following: *Sequential Compression Device (SCD) *Heparin 5000 units SQ BID 3-4 Higher Order ONE of the following medications: *Heparin 5000 units SQ TID *Enoxaparin/Lovenox 40 mg SQ daily (WT < 150 kg, CrCl > 30 mL/min) *Enoxaparin/Lovenox 30 mg SQ daily (WT < 150 kg, CrCl > 10-29 mL/min) *Enoxaparin/Lovenox 30 mg SQ BID (WT < 150 kg, CrCl > 30 mL/min) AND/OR *Sequential Compression Device (SCD) 5 or more Highest Order ONE of the following medications: *Heparin 5000 units SQ TID (Preferred with Epidurals) *Enoxaparin/Lovenox 40 mg SQ daily (WT < 150 kg, CrCl > 30 mL/min) *Enoxaparin/Lovenox 30 mg SQ daily (WT < 150 kg, CrCl > 10-29 mL/min) *Enoxaparin/Lovenox 30 mg SQ BID (WT < 150 kg, CrCl > 30 mL/min) AND *Sequential Compression Device (SCD) Assessment and Plan Problem List: (1) Feeding tube dysfunction ICD Code: T85.598A - Other mechanical complication of other gastrointestinal prosthetic devices, implants and grafts, initial encounter (2) Abdominal pain ICD Code: R10.9 - Unspecified abdominal pain (3) Acute renal failure ICD Code: N17.9 - Acute kidney failure, unspecified (4) Hypokalemia ICD Code: E87.6 - Hypokalemia Status: Acute (5) Leukocytosis ICD Code: D72.829 - Elevated white blood cell count, unspecified Status: Acute (6) Dehydration ICD Code: E86.0 - Dehydration Status: Acute Assessment and Plan 51-year-old man with Abdominal left-sided pain May be secondary to malfunctioning PEG tube CT abdomen noted and reviewed by me with no indication of malfunctioning of PEG tube, however will consult interventional radiology for reassessment Hypokalemia Replace electrolyte and monitor Dehydration Status post 1 L NS bolus given Acute renal failure Start gentle IV fluid hydration Monitor BUN/creatinine Hyperglycemia May be secondary to tube feed Check hemoglobin A1c Leukocytosis Chest x-ray noted and reviewed by me without any indication of pulmonary infiltrate History of laryngeal cancer Outpatient follow-up with oncology Consult RT Duodenum and when necessary F/E/N Consult dietitian to resume feeding tube Hypothyroidism Resume Synthroid Code Status Full code Discussed Condition With Patient, ED PA Problem Qualifiers (1) Leukocytosis: Qualified Codes: D72.829 - Elevated white blood cell count, unspecified Darrius Goff MD Feb 27, 2017 15:21
--- NOTE | 2017-02-27 15:32 | PD.RAD ---
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 Position of the tube documented to be in the stomach by Ct this AM. Tube flushes and aspirates normally. Full dictated report to follow See PACS Report for procedural detail/treatment Zelalem Gutierrez MD Feb 27, 2017 15:32
[2017-02-27 16:00] VITALS: BP 112/70; PULSE 95; RESP 18; TEMP 97.5; O2SAT 100
[2017-02-27] MEDS: SODIUM CHLOR 0.9% 1000 ML INJ 1,000 ML IV SCH (16:01)
--- NOTE | 2017-02-27 16:10 | RADRPT ---
EXAM DATE/TIME: 02/27/2017 00:00 [place] COMPARISON : INDICATIONS : Patient presents with G tube in need of evaluation. OBJECTIVE: The patient arrived from the ED. The G-tube was evaluated. The tube flushed and aspirated normally. T he patient had undergone CT imaging at 1306 hrs. demonstrating the tube to be in good position. TIME SPENT: 15 minutes. Zelalem Gutierrez MD on February 27, 2017 at 16:07 Board Certified Radiologist. This report was verified electronically.
[2017-02-27] MEDS: ACETAMINOPHEN/HYDROcodone 325 MG/5 MG TAB PO PRN ×2 (16:25→21:02)
[2017-02-27] MEDS ORDERED: ONDANSETRON HCL 4 MG/2 ML VIAL IVP PRN (17:00)
[2017-02-27] MEDS: SODIUM CHLORIDE 0.9% FLUSH 10 ML FLUSH IV FLUSH SCH (21:00)
[2017-02-27 21:14] VITALS: BP 97/63; PULSE 85; RESP 18; TEMP 98.2; O2SAT 100
[2017-02-28] VITALS (8 sets, daily range): BP systolic 83–93; BP diastolic 56–66; PULSE 72–107; RESP 18–19; TEMP 98.1–98.5; O2SAT 97–100
[2017-02-28] MEDS: SODIUM CHLOR 0.9% 1000 ML INJ 1,000 ML IV SCH ×2 (02:56→13:12)
[2017-02-28 03:56] LABS: BLOOD, URINE NEG (NEG); COMMENT (UR) CULT NOT INDICATED; CULTURE IF INDICATED CULT NOT INDICATED; GLUCOSE,URINE NEG (NEG); KETONE, URINE 40 mg/dL (NEG); NITRITE,URINE NEG (NEG); PH, URINE 6.5 (5.0-8.5); SQUAMOUS EPITHELIAL CELL URINE <1 /hpf (0-5); URINE COLOR YELLOW (YELLW/STRAW)
[2017-02-28] MEDS: RESP: ALBUTEROL 2.5 MG/IPRATROPIUM 0.5 MG NEB (PRN) NEB ×4 (04:30→20:41)
[2017-02-28] MEDS: ACETAMINOPHEN/HYDROcodone 325 MG/5 MG TAB PO PRN ×4 (04:51→20:55)
[2017-02-28] MEDS: LEVOTHYROXINE SODIUM 125 MCG TAB PO SCH (05:47)
[2017-02-28 06:12] LABS: AUTOMATED NEUTROPHIL # 8.4 TH/MM3 (1.8-7.7); BASOPHIL # 0.1 TH/MM3 (0-0.2); BASOPHIL % 0.9 % (0.0-2.0); EOSINOPHIL # 0.1 TH/MM3 (0-0.4); EOSINOPHIL % 0.8 % (0.0-4.0); HEMO FLAGS DIFF FINAL; LYMPH % 8.9 % (9.0-44.0); LYMPHOCYTE # 0.9 TH/MM3 (1.0-4.8); MEAN CORPUSCULAR HEMOGLOBIN 39.9 PG (27.0-34.0); MEAN CORPUSCULAR HGB CONC 35.3 % (32.0-36.0); MONO % 8.1 % (0.0-8.0); NEUT % 81.3 % (16.0-70.0); PLATELET COUNT 149 TH/MM3 (150-450); RED BLOOD COUNT 2.22 MIL/MM3 (4.50-5.90); WHITE BLOOD COUNT 10.3 TH/MM3 (4.0-11.0)
[2017-02-28 06:44] LABS: BICARBONATE 28.4 MEQ/L (21.0-32.0); CALCIUM-PROTEIN CORRECTED 8.2 MG/DL (8.5-10.1); TOTAL BILIRUBIN ADULT 0.8 MG/DL (0.2-1.0)
[2017-02-28] MEDS: SODIUM CHLORIDE 0.9% FLUSH 10 ML FLUSH IV FLUSH SCH ×2 (08:05→20:56)
--- NOTE | 2017-02-28 10:50 | HHI.PR ---
Subjective Remarks Follow-up left-sided abdominal pain/hypokalemia/acute renal failure 02/28/17-patient seen and examined, reports improvement of emesis and denies any more abdominal pain. Potassium improving. Renal indices improved Objective Vitals Vital Signs Date Time Temp Pulse Resp B/P (MAP) Pulse Ox O2 Delivery O2 Flow Rate FiO2 02/28/17 09:20 98 Trach Collar 21 02/28/17 04:33 97 Trach Collar 5.00 21 02/28/17 01:13 98.1 72 18 93/66 (75) 100 02/27/17 21:14 98.2 85 18 97/63 (74) 100 02/27/17 16:00 97.5 95 18 112/70 (84) 100 02/27/17 15:09 02/27/17 14:43 119 16 101/73 (82) 97 Room Air 02/27/17 12:12 117 16 113/83 (93) 98 Room Air 02/27/17 11:11 137 24 110/88 (95) 100 Room Air 02/27/17 11:06 98.9 128 23 110/88 (95) 100 I/O 02/27/17 02/27/17 02/27/17 02/28/17 02/28/17 02/28/17 07:00 15:00 23:00 07:00 15:00 23:00 Intake Total 2000 ml 300 ml Balance 2000 ml 300 ml Intake IV Total 2000 ml Tube Feeding 240 ml Other 60 ml # Voids 1 # Bowel Movements 0 Result Diagram: 02/28/17 0558 02/28/17 0558 Imaging Last Impressions Chest X-Ray 02/27/17 1114 Signed Impressions: Service Date/Time: Monday, February 27, 2017 11:45 - CONCLUSION: 1. No acute abnormality or significant interval change. Kerwin Hook MD Abdomen/Pelvis CT 02/27/17 1114 Signed Impressions: Service Date/Time: Monday, February 27, 2017 13:06 - CONCLUSION: 1. The gastrostomy tube is in good position. 2. No definite abnormality to explain the patient's left-sided abdominal pain is identified. 3. Degenerative changes throughout the spine. Zelalem Gutierrez MD Objective Remarks GENERAL: NAD SKIN: Warm and dry. HEAD: Normocephalic. EYES: No scleral icterus. No injection or drainage. NECK: Supple, trachea midline. No JVD or lymphadenopathy. CARDIOVASCULAR: Regular rate and rhythm without murmurs, gallops, or rubs. RESPIRATORY: Breath sounds equal bilaterally. No accessory muscle use. GASTROINTESTINAL: Abdomen soft, non-tender, nondistended. PEG tube in place MUSCULOSKELETAL: No cyanosis, or edema. BACK: Nontender without obvious deformity. No CVA tenderness. Procedures none A/P Problem List: (1) Feeding tube dysfunction ICD Code: T85.598A - Other mechanical complication of other gastrointestinal prosthetic devices, implants and grafts, initial encounter (2) Abdominal pain ICD Code: R10.9 - Unspecified abdominal pain Status: Resolved (3) Acute renal failure ICD Code: N17.9 - Acute kidney failure, unspecified Status: Resolved (4) Hypokalemia ICD Code: E87.6 - Hypokalemia Status: Acute (5) Leukocytosis ICD Code: D72.829 - Elevated white blood cell count, unspecified Status: Resolved (6) Dehydration ICD Code: E86.0 - Dehydration Status: Resolved Assessment and Plan 51-year-old man with Abdominal left-sided pain Resolved CT abdomen with no indication of malfunctioning of PEG tube, Appreciate input from interventional radiology will did not see any evidence of PEG tube malfunctioning Hypokalemia Improving Dehydration Resolved Status post 1 L NS bolus given Acute renal failure Resolved with gentle IV fluid hydration Monitor BUN/creatinine Hyperglycemia-resolved Leukocytosis-resolved Chest x-ray without any indication of pulmonary infiltrate History of laryngeal cancer Outpatient follow-up with oncology Consult RT Duo neb and when necessary F/E/N Consult dietitian to resume feeding tube Resume tube feed Hypothyroidism Continue Synthroid Discharge Planning Discharge patient to home Condition on discharge: Improved Regular Diet as tolerated Ad Sade activity Rx written:none Follow-up with primary care physician in 1 week Problem Qualifiers (1) Leukocytosis: Qualified Codes: D72.829 - Elevated white blood cell count, unspecified Darrius Goff MD Feb 28, 2017 10:50
[2017-02-28] MEDS ORDERED: SODIUM CHLOR 0.9% 250 ML INJ 250 ML IV ONE (14:15)
--- NOTE | 2017-02-28 14:58 | HHI.PR ---
Addendum to Inpatient Note Addendum Reason: Additional Documentation Additional Information Will hold discharge as patient still hypotensive despite Fluid Bolus Continue with IVF hydration Darrius Goff MD Feb 28, 2017 14:58
[2017-02-28] MEDS ORDERED: POTASSIUM CHLORIDE 25 MEQ EFFERVESCENT TAB PO ONE (16:00)
[2017-03-01 00:15] VITALS: BP 93/60; PULSE 95; RESP 18; TEMP 98.2; O2SAT 100
[2017-03-01] MEDS: SODIUM CHLOR 0.9% 1000 ML INJ 1,000 ML IV SCH (00:20)
[2017-03-01 01:08] VITALS: O2SAT 98
[2017-03-01 05:30] VITALS: BP 95/65; PULSE 89; RESP 19; TEMP 97; O2SAT 100
[2017-03-01] MEDS: LEVOTHYROXINE SODIUM 125 MCG TAB PO SCH (05:46)
[2017-03-01] MEDS: ACETAMINOPHEN/HYDROcodone 325 MG/5 MG TAB PO PRN (05:46)
[2017-03-01] MEDS ORDERED: MIDODRINE 5 MG TAB PO SCH (07:45)
[2017-03-01 08:00] VITALS: BP 121/69; PULSE 85; RESP 18; O2SAT 100
[2017-03-01] MEDS: SODIUM CHLORIDE 0.9% FLUSH 10 ML FLUSH IV FLUSH SCH (08:58)
[2017-03-01 10:23] VITALS: O2SAT 100
--- NOTE | 2017-03-01 11:17 | HHI.PR ---
Subjective Remarks Follow-up left-sided abdominal pain/hypokalemia/acute renal failure 02/28/17-patient seen and examined, reports improvement of emesis and denies any more abdominal pain. Potassium improving. Renal indices improved 03/01/17-BP soft however improving. Tolerating tube feed with tray. No Episode of emesis Objective Vitals Vital Signs Date Time Temp Pulse Resp B/P (MAP) Pulse Ox O2 Delivery O2 Flow Rate FiO2 03/01/17 10:23 100 Trach Collar 4.00 21 03/01/17 08:00 85 18 121/69 (86) 100 03/01/17 05:30 97.0 89 19 95/65 (75) 100 03/01/17 01:08 98 Trach Collar 6.00 28 03/01/17 00:15 98.2 95 18 93/60 (71) 100 02/28/17 21:00 98.4 90 19 92/57 (69) 100 02/28/17 20:43 99 Trach Collar 21 02/28/17 16:00 98.5 107 18 93/56 (68) 100 02/28/17 12:00 98.5 102 18 83/56 (65) 100 I/O 02/28/17 02/28/17 02/28/17 03/01/17 03/01/17 03/01/17 07:00 15:00 23:00 07:00 15:00 23:00 Intake Total 850 ml 600 ml 2309 ml Output Total 200 ml 700 ml Balance 850 ml 400 ml 1609 ml Intake Oral 0 ml 1200 ml IV Total 250 ml 600 ml 1109 ml Tube Feeding 480 ml Other 120 ml Output Urine Total 200 ml 700 ml # Voids 1 # Bowel Movements 0 0 0 Result Diagram: 02/28/17 0558 02/28/1758 Objective Remarks GENERAL: NAD SKIN: Warm and dry. HEAD: Normocephalic. EYES: No scleral icterus. No injection or drainage. NECK: Supple, trachea midline. No JVD or lymphadenopathy. CARDIOVASCULAR: Regular rate and rhythm without murmurs, gallops, or rubs. RESPIRATORY: Breath sounds equal bilaterally. No accessory muscle use. GASTROINTESTINAL: Abdomen soft, non-tender, nondistended. PEG tube in place MUSCULOSKELETAL: No cyanosis, or edema. BACK: Nontender without obvious deformity. No CVA tenderness. Procedures none A/P Problem List: (1) Feeding tube dysfunction ICD Code: T85.598A - Other mechanical complication of other gastrointestinal prosthetic devices, implants and grafts, initial encounter (2) Abdominal pain ICD Code: R10.9 - Unspecified abdominal pain Status: Resolved (3) Acute renal failure ICD Code: N17.9 - Acute kidney failure, unspecified Status: Resolved (4) Hypokalemia ICD Code: E87.6 - Hypokalemia Status: Acute (5) Leukocytosis ICD Code: D72.829 - Elevated white blood cell count, unspecified Status: Resolved (6) Dehydration ICD Code: E86.0 - Dehydration Status: Resolved Assessment and Plan 51-year-old man with Abdominal left-sided pain Resolved CT abdomen with no indication of malfunctioning of PEG tube, Appreciate input from interventional radiology who did not see any evidence of PEG tube malfunctioning Hypotension Consider Midodrine Hypokalemia Improving Dehydration Resolved Status post 1 L NS bolus given Acute renal failure Resolved with gentle IV fluid hydration Monitor BUN/creatinine Hyperglycemia-resolved Leukocytosis-resolved Chest x-ray without any indication of pulmonary infiltrate History of laryngeal cancer Outpatient follow-up with oncology Consult RT Duo neb and when necessary F/E/N Continue tube feed with tray Hypothyroidism Continue Synthroid Discharge Planning Discharge patient to home Condition on discharge: Improved Regular Diet as tolerated Ad Sade activity Rx written:none Follow-up with primary care physician in 1 week Problem Qualifiers (1) Leukocytosis: Qualified Codes: D72.829 - Elevated white blood cell count, unspecified Darrius Goff MD Mar 01, 2017 11:17
--- NOTE | 2017-03-01 11:19 | HHI.DS ---
Discharge Summary Admission Date Feb 27, 2017 at 13:32 Discharge Date: Mar 01, 2017 Admitting Diagnosis HypoKalemia/Elevated Creatinine/Leukocytosis/Vomitting (1) Feeding tube dysfunction ICD Code: T85.598A - Other mechanical complication of other gastrointestinal prosthetic devices, implants and grafts, initial encounter (2) Abdominal pain ICD Code: R10.9 - Unspecified abdominal pain Status: Resolved (3) Acute renal failure ICD Code: N17.9 - Acute kidney failure, unspecified Status: Resolved (4) Hypokalemia ICD Code: E87.6 - Hypokalemia Status: Acute (5) Leukocytosis ICD Code: D72.829 - Elevated white blood cell count, unspecified Status: Resolved (6) Dehydration ICD Code: E86.0 - Dehydration Status: Resolved Procedures none Brief History - From Admission 51-year-old man with a history of laryngeal cancer who recently underwent G- tube replacement on 02/24/17 by interventional radiology presented to the ED for evaluation of syncopal episode along with weakness, nausea and vomiting associated with left-sided abdominal pain 3 days duration. Patient is currently on tube feed however reports multiple episodes of black emesis over the past 48 hours. He also complained abdominal pain mostly to his left- sided rated 5/10 intensity. He denies any febrile episode however abnormal lab includes WBC 16, BUN/creatinine 51/1.87, potassium 2.7 and blood glucose 2:30. Vitals with temperature 98.9, heart rate 128, respiratory rate 23, BP 110/88 with oxygen saturation on room air 100% CBC/BMP: 02/28/17 0558 02/28/17 0558 Significant Findings Laboratory Tests Test 02/27/17 11:30 02/27/17 13:35 02/28/17 03:34 02/28/17 05:58 White Blood Count 16.6 TH/MM3 (4.0-11.0) Red Blood Count 3.37 MIL/MM3 (4.50-5.90) 2.22 MIL/MM3 (4.50-5.90) Hematocrit 37.5 % (39.0-51.0) 25.0 % (39.0-51.0) Mean Corpuscular Volume 111.5 FL (80.0-100.0) 113.0 FL (80.0-100.0) Mean Corpuscular Hemoglobin 38.8 PG (27.0-34.0) 39.9 PG (27.0-34.0) Neutrophils (%) (Auto) 86.2 % (16.0-70.0) 81.3 % (16.0-70.0) Lymphocytes (%) (Auto) 4.0 % (9.0-44.0) 8.9 % (9.0-44.0) Monocytes (%) (Auto) 9.6 % (0.0-8.0) 8.1 % (0.0-8.0) Neutrophils # (Auto) 14.3 TH/MM3 (1.8-7.7) 8.4 TH/MM3 (1.8-7.7) Lymphocytes # (Auto) 0.7 TH/MM3 (1.0-4.8) 0.9 TH/MM3 (1.0-4.8) Monocytes # (Auto) 1.6 TH/MM3 (0-0.9) Activated Partial Thromboplast Time 23.9 SEC (24.3-30.1) Blood Urea Nitrogen 51 MG/DL (7-18) 24 MG/DL (7-18) Creatinine 1.87 MG/DL (0.60-1.30) Random Glucose 230 MG/DL (74-106) Albumin 3.2 GM/DL (3.4-5.0) 2.6 GM/DL (3.4-5.0) Total Bilirubin 1.2 MG/DL (0.2-1.0) Sodium Level 133 MEQ/L (136-145) Potassium Level 2.7 MEQ/L (3.5-5.1) 3.0 MEQ/L (3.5-5.1) Chloride Level 88 MEQ/L (98-107) Anion Gap 16 MEQ/L (5-15) Estimat Glomerular Filtration Rate 38 ML/MIN (>89) Lactic Acid Level 3.0 mmol/L (0.4-2.0) Urine Specific [place] 1.038 (1.002-1.035) Urine Ketones 40 mg/dL (NEG) Hemoglobin 8.9 GM/DL (13.0-17.0) Platelet Count 149 TH/MM3 (150-450) Total Protein 5.4 GM/DL (6.4-8.2) Calcium Level 7.3 MG/DL (8.5-10.1) Protein Corrected Calcium 8.2 MG/DL (8.5-10.1) Imaging Last Impressions Chest X-Ray 02/27/17 1114 Signed Impressions: Service Date/Time: Monday, February 27, 2017 11:45 - CONCLUSION: 1. No acute abnormality or significant interval change. Kerwin Hook MD Abdomen/Pelvis CT 02/27/17 1114 Signed Impressions: Service Date/Time: Monday, February 27, 2017 13:06 - CONCLUSION: 1. The gastrostomy tube is in good position. 2. No definite abnormality to explain the patient's left-sided abdominal pain is identified. 3. Degenerative changes throughout the spine. Zelalem Gutierrez MD PE at Discharge GENERAL: NAD SKIN: Warm and dry. HEAD: Normocephalic. EYES: No scleral icterus. No injection or drainage. NECK: Supple, trachea midline. No JVD or lymphadenopathy. CARDIOVASCULAR: Regular rate and rhythm without murmurs, gallops, or rubs. RESPIRATORY: Breath sounds equal bilaterally. No accessory muscle use. GASTROINTESTINAL: Abdomen soft, non-tender, nondistended. PEG tube in place MUSCULOSKELETAL: No cyanosis, or edema. BACK: Nontender without obvious deformity. No CVA tenderness. Hospital Course Patient admitted secondary to left-sided abdominal pain for which interventional radiology was consulted and malfunctioning PEG tube was ruled out. He was treated for hypotension and dehydration and placed on IV fluid with improvement of symptoms. Renal function improved with IV fluid hydration prior to discharge. All electrolyte abnormalities including hypokalemia were replaced accordingly. Tube feed with tray was provided to patient. DVT and GI prophylaxis were provided. Pt Condition on Discharge: Stable Discharge Disposition: Discharge Home Discharge Time: <= 30 minutes Discharge Instructions DIET: Follow Instructions for: On Tube Feeding Activities you can perform: Regular-No Restrictions Follow up Referrals: PCP Follow-up - 1 Week Continued Medications: Levothyroxine (Synthroid) 125 Mcg Tab 125 MCG PO DAILY for Thyroid, #30 TAB 0 Refills Oxycodone-Acetaminophen (Oxycodone-Acetaminophen) 5-325 mg Tab 1 TAB PO Q6H PRN for PAIN, TAB 0 Refills [Chemo ] () Darrius Goff MD Mar 01, 2017 11:19
[2017-03-01] MEDS: RESP: ALBUTEROL 2.5 MG/IPRATROPIUM 0.5 MG NEB (PRN) NEB (11:55)
== END 2017-03-01 12:33 | disposition home or self-care (01) ==
LOC: NEPC 10:59 → NEDA 13:32 → N05A 15:51
PROVIDERS: ADMIT Hospitalist; ATTEND Hospitalist
DX: T85.598A Other mechanical complication of other gastrointestinal prosthetic devices, implants and grafts, initial encounter (principal); C32.9 Malignant neoplasm of larynx, unspecified; E86.0 Dehydration; J44.9 Chronic obstructive pulmonary disease, unspecified; D72.829 Elevated white blood cell count, unspecified; N17.9 Acute kidney failure, unspecified; E87.6 Hypokalemia; E03.9 Hypothyroidism, unspecified
CPT/HCPCS: 71010; 74177; 80053; 81001; 83605; 83690; 85025; 85610; 85730; 93005; 94640; 94664; 96361; 96374; 96375; 96376; 99285; C9113; G0378; J2270; J2405; J3480; J7030; J7050; Q9967